=== PATIENT | female | born 1945 | race Caucasian/White ===

== ENCOUNTER 2016-10-13 10:10 | Emergency (ER) | payer MEDICARE ==
[2016-10-13 10:20] VITALS: BP 140/82
--- NOTE | 2016-10-13 11:30 | UC ---
Skin Complaint HPI - HPI Summary HPI Summary: Pt c/o painful "lump" on left side of chin thats been there for over two weeks and does not radiate. She states she had a cold right before she began to notice the lump. The lump is painful and without redness, warmth or drainage. She states the lump came upon gradually and has not gotten better or worse in the last few days. She states Motrin makes the pain better and has been taking it consistently since the onset of the lump. She denies health problems and takes levothyroxine for hypothyroid. She denies previous sxs similar to this. She wears dentures and pain is worse without dentures. She notes that she cleans her dentures thoroughly and denies recent dental infections. Denies fevers, chills, ear pain, sweats, neck pain. Allergic to cillins. - History of Current Complaint Chief Complaint: UCSkin Time Seen by Provider: 10/13/16 11:18 Stated Complaint: LUMP ON CHIN Hx Obtained From: Patient ?: No Onset/Duration: Gradual Onset Skin Exposure Onset/Duration: Days Ago Timing: Constant Onset Severity: Moderate Current Severity: Moderate Pain Intensity: 3 Pain Scale Used: 0-10 Numeric Location: Face Character: Swelling, Raised Aggravating: Touch Alleviating: OTC Meds - motrin Associated Signs & Symptoms: Positive: Negative - Allergy/Home Medications Allergies/Adverse Reactions: Allergies Allergy/AdvReac Type Severity Reaction Status Date / Time Ampicillin Allergy Rash Verified 10/13/16 10:20 Hydrochlorothiazide Allergy Unknown Verified 10/13/16 10:20 [From Benicar HCT] Reaction Details Olmesartan [From Benicar HCT] Allergy Unknown Verified 10/13/16 10:20 Reaction Details Home Medications: Home Medications Acetaminophen [Acetaminophen Extra Stren] 500 mg PO Q4H PRN 10/13/16 [History Confirmed 10/13/16] Review of Systems Constitutional: Negative Skin: Other - swelling over left chin ENT: Other - swelling of left chin Respiratory: Negative Cardiovascular: Negative Motor: Negative Neurological: Negative Psychological: Negative All Other Systems Reviewed And Are Negative: Yes PMH/Surg Hx/FS Hx/Imm Hx Previously Healthy: Yes Endocrine History Of: Reports: Diabetes, Thyroid Disease Cardiovascular History Of: Reports: Hypertension Denies: Pacemaker/ICD GI/ History Of: Reports: Renal Disease - STONES RESOLVED - Surgical History Surgical History: Yes Surgery Procedure, Year, and Place: HYSTERECTOMY 1980, [place],THYROIDECTOMY 2001 - Social History Occupation: Retired Lives: With Family Alcohol Use: None Substance Use Type: None Smoking Status (MU): Never Smoked Tobacco Physical Exam Triage Information Reviewed: Yes Appearance: Well-Appearing, Well-Nourished Vital Signs: Initial Vital Signs Temp 97.5 F 10/13/16 10:13 Pulse 65 10/13/16 10:13 Resp 16 10/13/16 10:13 BP 140/82 10/13/16 10:13 Pulse Ox 98 10/13/16 10:13 Vital Signs Reviewed: Yes Eye Exam: Normal Eyes: Positive: Conjunctiva Clear ENT Exam: Normal ENT: Positive: Pharynx normal, TMs normal, Other: - 2cm diameter lump over left chin with associated pain on palpation Dental: Positive: Other: - slight gingivitis over bottom teeth under dentures and partial dentures Neck exam: Normal Neck: Positive: Supple, Nontender Respiratory: Positive: Chest non-tender, Lungs clear, Normal breath sounds Cardiovascular: Positive: RRR Musculoskeletal Exam: Normal Musculoskeletal: Positive: Strength Intact Neurological Exam: Normal Neurological: Positive: Alert Psychological: Positive: Normal Response To Family Skin Exam: Normal Course/Dx - Course Course Of Treatment: Patient with 2cm in diameter swelling to left lower chin without associated redness, warmth, drainage. Pain on palpation. pain is better with motrin. patient given clindamycin and encouraged to follow up with ENT. Possible sialadenitis of sublingual gland or abscess under skin. Denies trismus, difficulty swallowing or other symptoms. Denies DUMAS. No fever, chills or sweats. VS WNL. Will treat to cover both sialadenitis with infection and abscess. - Differential Diagnoses - Skin Complaint Differential Diagnoses: Angioedema, Local Allergic Reaction, Lymphadenitis, MRSA , Other - sialadenitis - Diagnoses Provider Diagnoses: lump on face Discharge - Discharge Plan Condition: Stable Disposition: HOME Prescriptions: Clindamycin Cap(NF) [Cleocin 300 mg Cap(NF)] 300 mg PO Q6H #40 cap Patient Education Materials: Dental Abscess (ED), Sialoadenitis (ED) Referrals: Hernán Macias MD [Medical Doctor] - Sabrina Montalvo MD [Primary Care Provider] - Additional Instructions: I AM REFERRING YOU TO ENT PHYSICIAN THIS COULD BE A DUCT OBSTRUCTION CAUSING INFLAMMATION THIS COULD ALSO BE AN INFECTION OF THE LOWER JAW/TOOTH I AM GOING TO START YOU ON ANTIBIOTICS, BUT PLEASE FOLLOW UP WITH PCP OR ENT IF SYMPTOMS BECOME WORSE, COME BACK TO UC OR GO THE THE ED RIGHT AWAY. IBUPROFEN 600MG THREE TIMES DAILY FOR PAIN AND INFLAMMATION. Images Head: 1 - small 2cm lump without erythema, warmth or drainage.
== END 2016-10-13 11:45 | disposition home or self-care (01) ==
LOC: UCCORT 10:10
DX: R22.0 Localized swelling, mass and lump, head (principal); E11.9 Type 2 diabetes mellitus without complications; I10 Essential (primary) hypertension; E89.0 Postprocedural hypothyroidism; Z90.49 Acquired absence of other specified parts of digestive tract; Z88.1 Allergy status to other antibiotic agents
CPT/HCPCS: 99212; G0463

== ENCOUNTER 2018-07-10 08:18 | Emergency (ER) | payer MEDICARE ==
--- OUTSIDE RECORDS SUMMARY | 2018-07-10 08:25 | XMS REPORT | Continuity of Care Document ---
:1945 External Reference #:[id number] Author Name Sheryl Travis Care Team Providers Name Role Phone Sabrina Mitchell MD Primary Care Physician Unavailable Payers Type Date Identification Numbers Payment Provider Subscriber Expires: Policy Number: [id number] [facility] Medicare Solutions Hina Gómez 2016 PayID: [id number] [address] [address] [place] [address] Policy Number: [id number] Medicare Blue Ppo Hina Gómez PayID: [id number] [address] [address] [place] [address] Advance Directives Description No Information Available Problems Date Description Provider Status Onset: 12/23/2016 Essential hypertension Donnie Simons, [facility] Active Onset: 07/04/2018 Anxiety state Kali Aviles M.D. Active Onset: 07/04/2018 Recurrent major depressive episodes Kali Aviles M.D. Active Onset: 07/04/2018 Chronic fatigue syndrome Kali Aviles M.D. Active Onset: 07/04/2018 Amnesia Kali Aviles M.D. Active Family History Date Family Member(s) Problem(s) Comments Father Heart Disease : (12/12/2016) Father due to CAD Mother Alzheimer's Disease Social History Type Date Description Comments Sex Unknown Marital Status Lives With Occupation Retired nursing Hand Dominance Right-handed Tobacco Use Start: Unknown Never Smoked Cigarettes Tobacco Use Start: Unknown Never Smoked Cigars Tobacco Use Start: Unknown Never Smoked A Pipe Smoking Status Reviewed: 07/04/18 Never Smoked A Pipe Smokeless Tobacco Never Used Smokeless Tobacco ETOH Use Denies alcohol use Tobacco Use Start: Unknown Patient has never smoked Recreational Drug Use Denies Drug Use Exercise Type/Frequency Exercises regularly Water aerobics at the [facility] Allergies, Adverse Reactions, Alerts Date Description Reaction Status Severity Comments 10/18/2016 Ampicillin Active 10/18/2016 Hydrochlorothiazide Active 10/18/2016 Olmesartan Active 07/04/2018 Benicar HCT Itching Active Medications Medication Date Status Form Strength Qnty SIG Indications Ordering Provider Tylenol / Active Capsules 325mg 2 capsules Unknown 0000 three times a day Metformin HCL / Active Tablets ER 500mg 2 po twice [place], ER 0000 24HR a day Sabrina Batista MD Famotidine / Active Tablets 20mg 1 po twice [place], 0000 a day Sabrina Batista MD Escitalopram / Active Tablets 20mg po qday Macadam, Oxalate 0000 Sabrina Batista MD Losartan / Active Tablets 50-12.5mg take 1 Unknown Potassium/[place] 0000 tablet chlorothiazide once daily Simvastatin / Active Tablets 40mg 1 po qday Macadam, 0000 Sabrina Batista MD Metoprolol / Active Tablets 100mg 1 po twice [place], Tartrate 0000 a day Sabrina Batista MD Nifedipine ER / Active Tablets ER 30mg 1 po qday [place]adam, 0000 24HR Sabrina Batista MD Oxybutynin / Active Tablets 5mg 180ta by mouth Macadam, Chloride 0000 bs every day Sabrina Batista MD Mirtazapine / Active Tablets 15mg 1 po qday [place], 0000 Sabrina Batista MD Aspirin Adult / Active Tablets DR 81mg 1 by mouth Unknown Low Dose 0000 every day Levothyroxine / Active Tablets 125mcg 1 by mouth Unknown Sodium 0000 every other day One Daily For / Active Tablets 1 daily Unknown Women 0000 Levothyroxine / Active Tablets 112mcg 90tab 1 by mouth Unknown Sodium 0000 s Every Other Day Meclizine HCL / Active Tablets 25mg 30tab 1-2 tabs Unknown 0000 s three times a day as needed Duloxetine HCL / Active Caps DR 60mg 1 by mouth Unknown 0000 Part every day Colace 2-In-1 / Active Tablets 8.6-50mg 1 tab by Unknown 0000 mouth twice daily Clindamycin HCL / Hx Capsules 150mg as Unknown 0000 - directed 12/19/ for 10 2016 days. Levothyroxine 00/00/ Hx Tablets 125mcg 1 po qday [place], Sodium 0000 - Catherine 12/12/ M., N.P. 2016 Topiramate 0000/ Hx Tablets 100mg 1 po qday Paula 0000 - Sabrina 12/19/ MMD Gio 2016 Naproxen 0000/ Hx Tablets 375mg 1 by mouth Unknown 0000 - two times 12/19/ a day as 2017 needed Loratadine / Hx Capsules 10mg once a day Unknown 0000 - for 2016 Proair HFA 00/00/ Hx Aerosol 108(90Base 2 puffs by Unknown 0000 - ) mcg/Act mouth every 2016 times a day as needed Vitamin D 0000/ Hx Tablets 1000Unit by mouth Unknown 0000 - everyday 2016 Calcium 600+D3 / Hx Tablets 600-800mg- 1 daily Unknown Plus Minerals 0000 - Unit 2017 Stool Softener / Hx Capsules 100mg 1 by mouth Unknown 0000 - twice 06/11/ daily 2018 Proair HFA 00/00/ Hx Aerosol 108(90Base 2 puffs by Unknown 0000 - ) mcg/Act mouth 07/02/ every 4 2017 hours as needed Vitamin D 0000/ Hx Tablets 1000Unit by mouth Unknown 0000 - everyday 2017 Medications Administered in Office Medication Date Status Form Strength Qnty SIG Indications Ordering Provider Technetium TC Administered Injection Donnie S. 99M 017 DO Ronak Tetrofosmin, FACC Per Unit Dose Up To 40 Millicuries Immunizations Description No Information Available Vital Signs Date Vital Result Comment 07/04/2018 8:36am Height 66.25 inches 5'6.25" Weight 197.00 lb BP Systolic Sitting 118 mmHg BP Diastolic Sitting 68 mmHg Respiratory Rate 16 /min Pain Level 0 BMI (Body Mass Index) 31.6 kg/m2 01/13/2017 2:37pm Weight 221.00 lb with shoes Heart Rate 62 /min BP Systolic Sitting 114 mmHg Lue lg cuff BP Diastolic Sitting 80 mmHg Lue lg cuff BP Systolic Standing 112 mmHg Lue lg cuff BP Diastolic Standing 80 mmHg Lue lg cuff Respiratory Rate 16 /min Ejection Fraction 60-65% date 12/20/16 ECHO 12/23/2016 10:03am Height 66.25 inches 5'6.25" Weight 216.00 lb no shoes Heart Rate 76 /min BP Systolic 138 mmHg Rue lrg cuff BP Diastolic 82 mmHg Rue lrg cuff BP Systolic Sitting 140 mmHg Lue lrg cuff BP Diastolic Sitting 86 mmHg Lue lrg cuff BP Systolic Standing 128 mmHg Lue lrg cuff BP Diastolic Standing 80 mmHg Lue lrg cuff Respiratory Rate 17 /min BMI (Body Mass Index) 34.6 kg/m2 Ejection Fraction 60-65% 12/20/2016-echo 10/18/2016 2:41pm Height 67 inches 5'7" Weight 220.00 lb Heart Rate 77 /min BP Systolic Sitting 118 mmHg BP Diastolic Sitting 68 mmHg Respiratory Rate 16 /min Pain Level 2 BMI (Body Mass Index) 34.5 kg/m2 Results Description No Information Available Procedures Date Code Description Status 01/03/2017 24413 Stress Test Completed 01/03/2017 91399 Myocardial Perfusion Imaging Tomographic (Spect) Multiple Completed Studies 12/23/2016 08676 EKG Tracing & Interpretation Completed 12/20/2016 99827 ECHO Transthoracic, Real-Time 2D With Doppler And Color Completed Flow Encounters Type Date Location Provider Dx Diagnosis Office Visit 01/13/2017 [facility] Donnie SGio R94.31 Abnormal 2:40p Of Jamel Simons DO electrocardiogram [ECG] FACC [EKG] Office Visit 12/23/2016 [facility] Donnie SGio R94.31 Abnormal 10:40a Of Jamel Simons DO electrocardiogram [ECG] FACC [EKG] R73.01 Impaired fasting glucose E78.5 Hyperlipidemia, unspecified I10 Essential (primary) hypertension G47.33 Obstructive sleep apnea (adult) (pediatric) Office Visit 10/18/2016 [facility] K04.7 Periapical abscess 2:45p [facility] without sinus [facility] Office Visit 12/27/2012 Singh Samano, 427.0 PSVT Paroxysmal 2:00p Cardiology Elvi Alba, FACTha, Supraventricular [facility] FSCAI Tachycardia Plan of Treatment Future Appointment(s):11/28/2018 9:45 am - Kali Aviles M.D. at [facility]/ [facility]07/04/2018 - Kali Aviles M.D.R41.3 Other amnesiaFollow up:Follow up in 4 monthsRecommendations:Make appointment with PCP to discuss depression and anxiety. I would like for those to be better [id number] Chronic fatigue, [id number] Major depressive disorder, recurrent, [id number] Anxiety disorder, unspecified
[2018-07-10 08:36] VITALS: BP 136/61
--- NOTE | 2018-07-10 09:15 | UC ---
Headache HPI - HPI Summary HPI Summary: headache for months worse over the past one week and sever last night no her pain is 5 out of 10 , its pressure like and constant, no radiation of pain nothing make it better or worse no nausea or vomiting , + photophobia and problems with memory was seen by Dr. Aviles ( neurologist) no work up was done - History Of Current Complaint Chief Complaint: UCHeadache Stated Complaint: HEADACHE Time Seen by Provider: 07/10/18 08:35 Hx Obtained From: Patient Onset/Duration: Gradual Onset, Lasting Weeks - 1, Still Present Onset Of Symptoms: Still Present Initially Headache Was: Severe Currently Pain Is: Moderate Pain Intensity: 6 Timing: Constant, Weeks Character: Dull, Pressure Location of Headache: Diffuse Aggravating Factor(s): Nothing Allevating Factor(s): Nothing Associated Signs And Symptoms: Positive: Visual Changes. Negative: Seizure, Nausea, Vomiting, Sinus Pressure, Fever, Neck Pain, Neck Stiffness, Decreased LOC - Allergies/Home Medications Allergies/Adverse Reactions: Allergies Allergy/AdvReac Type Severity Reaction Status Date / Time ampicillin Allergy Rash Verified 07/10/18 08:39 hydrochlorothiazide Allergy Unknown Verified 07/10/18 08:39 [From Benicar HCT] Reaction Details olmesartan [From Benicar HCT] Allergy Unknown Verified 07/10/18 08:39 Reaction Details Home Medications: Home Medications Acetaminophen [Acetaminophen Extra Strength] 100 mg PO BID PRN 07/10/18 [ History Confirmed 07/10/18] Aspirin [Ecotrin Low Strength] 81 mg PO DAILY 07/10/18 [History Confirmed ] Calcium 600mg 1 tab PO DAILY 07/10/18 [History Confirmed 07/10/18] Docusate Sodium [Colace] 100 mg PO BID 07/10/18 [History Confirmed 07/10/18] Losartan/Hydrochlorothiazide [Losartan Potassium/Hydroc 50-12.5 mg] 1 tab PO QAM 07/10/18 [History Confirmed 07/10/18] PMH/Surg Hx/FS Hx/Imm Hx - Additional Past Medical History Additional PMH: Graves disease. Lightheadedness for about 9 months; pt fell due to balance problem 05/2018. Hx Vertigo [ End ] Endocrine History: Thyroid Disease, Hypothyroidism Cardiovascular History: Hypertension - Surgical History Surgical History: Yes Surgery Procedure, Year, and Place: HYSTERECTOMY. THYROIDECTOMY. GALLBLADDER - Family History Known Family History: Positive: Hypertension - Social History Alcohol Use: None Substance Use Type: None Smoking Status (MU): Never Smoked Tobacco Review of Systems All Other Systems Reviewed And Are Negative: Yes Constitutional: Positive: Fatigue Skin: Positive: Negative Eyes: Positive: Negative ENT: Positive: Negative Respiratory: Positive: Negative Cardiovascular: Positive: Negative Gastrointestinal: Positive: Negative Motor: Positive: Weakness Neurovascular: Positive: Negative Musculoskeletal: Positive: Negative Neurological: Positive: Weakness Is Patient Immunocompromised?: No Physical Exam Triage Information Reviewed: Yes Appearance: Well-Appearing, No Pain Distress, Well-Nourished Vital Signs: Initial Vital Signs Temp 97.3 F 07/10/18 08:25 Pulse 89 07/10/18 08:25 Resp 16 07/10/18 08:25 BP 136/61 07/10/18 08:25 Pulse Ox 99 07/10/18 08:25 Vital Signs Reviewed: Yes Eyes: Positive: Conjunctiva Clear ENT: Positive: Normal ENT inspection, Hearing grossly normal, Pharynx normal Neck: Positive: Supple, Nontender, No Lymphadenopathy Respiratory: Positive: Chest non-tender, Lungs clear, Normal breath sounds Cardiovascular: Positive: RRR, No Murmur, Pulses Normal Musculoskeletal Exam: Normal Musculoskeletal: Positive: Strength Intact, ROM Intact Neurological: Positive: Alert, Muscle Tone Normal Psychological: Positive: Age Appropriate Behavior Skin Exam: Normal UC Physical Exam Vital Signs On Initial Exam: Initial Vitals Temp Pulse Resp BP Pulse Ox 97.3 F 89 16 136/61 99 07/10/18 08:25 07/10/18 08:25 07/10/18 08:25 07/10/18 08:25 07/10/18 08:25 - Neurological Exam Neurological: Normal, Sensory/Motor Intact, Alert, Oriented to Person Place, Time, CN Intact II-III, Reflexes Intact, Normal Gait Headache Course/Dx - Differential Dx/Diagnosis Provider Diagnosis: Headache, Memory deficit Discharge - Sign-Out/Discharge Documenting (check all that apply): Patient Departure All imaging exams completed and their final reports reviewed: No Studies - Discharge Plan Condition: Stable Disposition: HOME Prescriptions: SUMAtriptan TAB* [Imitrex TAB*] 100 mg PO SEE INSTRUCTIONS #10 tab Patient Education Materials: Acute Headache (DC), Mild Cognitive Impairment: New Diagnosis (DC) Referrals: Sarbina Montalvo MD [Primary Care Provider] - 7 Days Additional Instructions: will have you try migraine medication as needed for headache please call your neurologist for a follow up , may need a work up including brain MRI - Billing Disposition and Condition Condition: STABLE Disposition: Home
== END 2018-07-10 09:15 | disposition home or self-care (01) ==
LOC: UCCORT 08:18
DX: R51 Headache (principal); R41.3 Other amnesia; Z88.0 Allergy status to penicillin; I10 Essential (primary) hypertension
CPT/HCPCS: 99212; G0463

== ENCOUNTER 2019-02-23 07:46 | Emergency (ER) | payer MEDICARE ==
[2019-02-23 08:11] VITALS: BP 141/72
--- NOTE | 2019-02-23 08:22 | UC ---
General HPI - HPI Summary HPI Summary: pt is c/o swelling to her lower legs for the past 2 days. she admits to a prior hx of mild swelling to her lower legs but this is worse. she offers that she has been consuming a lot of salt as of late in her food plus with nuts and potato chips. she denies any hx of chf, NH, kidney and liver disease. she denies any new medications of dose adjustments to her medications. she denies cp, sob, fever, chills, dysuria and any other swelling including her abdomen and arms. - History of Current Complaint Chief Complaint: UCLowerExtremity Stated Complaint: BILATERAL ANKLE SWELLING Time Seen by Provider: 02/23/19 08:13 Hx Obtained From: Patient Onset/Duration: Gradual Onset Timing: Constant Pain Intensity: 0 Associated Signs & Symptoms: Negative: Abdominal Pain, Cough, Chest Pain, Fever , Palpitations, SOB, Wheezing, Weakness - Allergy/Home Medications Allergies/Adverse Reactions: Allergies Allergy/AdvReac Type Severity Reaction Status Date / Time ampicillin Allergy Rash Verified 02/23/19 08:01 olmesartan [From Benicar [facility]] Allergy Unknown Verified 02/23/19 08:01 Reaction Details Home Medications: Home Medications ARIPiprazole TAB* [Abilify TAB*] 5 mg PO BEDTIME 02/23/19 [History Confirmed ] Calcium Carbonate/Vitamin D3 [Calcium 600 + Vit D Tablet] 1 each PO DAILY [History Confirmed 02/23/19] Famotidine TAB* [Pepcid 20 MG TAB*] 20 mg PO BID 02/23/19 [History Confirmed ] Levothyroxine TAB* [Synthroid TAB*] 75 mcg PO DAILY 02/23/19 [History Confirmed 02/23/19] Losartan/Hydrochlorothiazide [Losartan Potassium/Hydroc 100-12.5 mg] 1 tab PO DAILY 02/23/19 [History Confirmed 02/23/19] Mirtazapine TAB* [Remeron TAB*] 30 mg PO BEDTIME 02/23/19 [History Confirmed ] NIFEdipine ER TAB* [Procardia Xl TAB*] 30 mg PO DAILY 02/23/19 [History Confirmed 02/23/19] buPROPion TAB* [Wellbutrin TAB*] 75 mg PO QAM 02/23/19 [History Confirmed ] metFORMIN* [Glucophage 500 MG TAB *] 1,000 mg PO BID 02/23/19 [History Confirmed 02/23/19] PMH/Surg Hx/FS Hx/Imm Hx - Additional Past Medical History Additional PMH: over active bladder. Endocrine History: Diabetes, Thyroid Disease, Dyslipidemia Cardiovascular History: Hypertension Psychological History: Depression - Surgical History Surgical History: Yes Surgery Procedure, Year, and Place: HYSTERECTOMY. THYROIDECTOMY. GALLBLADDER - Family History Known Family History: Positive: Hypertension - Social History Lives: With Family Alcohol Use: None Substance Use Type: None Smoking Status (MU): Never Smoked Tobacco Review of Systems All Other Systems Reviewed And Are Negative: Yes Constitutional: Negative: Fever, Chills Respiratory: Negative: Shortness Of Breath, Cough Cardiovascular: Negative: Palpitations, Chest Pain Gastrointestinal: Negative: Abdominal Pain Genitourinary: Negative: Dysuria Motor: Negative: Decreased ROM Musculoskeletal: Positive: Edema. Negative: Decreased ROM, Myalgia Neurological: Negative: Weakness, Paresthesia, Numbness Physical Exam Triage Information Reviewed: Yes Appearance: Well-Appearing Vital Signs: Initial Vital Signs Temp 97.9 F 02/23/19 08:00 Pulse 76 02/23/19 08:00 Resp 18 02/23/19 08:00 BP 141/72 02/23/19 08:00 Pulse Ox 99 02/23/19 08:00 Vital Signs Reviewed: Yes Eyes: Positive: Conjunctiva Clear ENT: Positive: Pharynx normal. Negative: Nasal congestion Neck: Positive: Supple, Nontender, No Lymphadenopathy, Other: - No JVD Respiratory: Positive: Lungs clear, Normal breath sounds, No respiratory distress. Negative: Crackles, Rhonchi, Wheezing Cardiovascular: Positive: RRR, No Murmur, Pulses Normal Abdomen Description: Positive: Nontender, No Organomegaly, Soft. Negative: Distended Bowel Sounds: Positive: Present Musculoskeletal: Positive: ROM Intact, Edema @ - Mild pitting from mid shins to feet. No calf cords or tenderness. Neurological: Positive: Alert Psychological: Positive: Age Appropriate Behavior Skin Exam: Normal Course/Dx - Differential Dx - Multi-Symptom Differential Diagnoses: Other - non toxic. not hypoxic. no concern for cardiopulmonary pathology as cause of edema. no hx renal or liver disease. + hx mild edema with acute worsening following dietary indiscretion. will also tx for uti based on u/a. u/a not + for large amounts of blood or protein to suggest nephritis or nephrotic syndrom. - Diagnoses Provider Diagnosis: Leg edema, UTI (urinary tract infection) Discharge - Sign-Out/Discharge Documenting (check all that apply): Patient Departure All imaging exams completed and their final reports reviewed: No Studies - Discharge Plan Condition: Stable Disposition: HOME Prescriptions: Cephalexin CAP* [Keflex CAP*] 500 mg PO BID 7 Days #14 cap Patient Education Materials: Urinary Tract Infection in Women (DC), Leg Edema ( ED) Referrals: Sabrina Montalvo MD [Primary Care Provider] - 2 Days Additional Instructions: NO ADDED SALT TO YOUR DIET. AVOID SALTY FOODS. ELEVATE YOUR LEGS WHEN POSSIBLE. CONSIDER COMPRESSION STOCKINGS. FOLLOW UP WITH YOUR DOCTOR THIS COMING MONDAY. GO TO THE ER IMMEDIATELY FOR ANY WORSENING. - Billing Disposition and Condition Condition: STABLE Disposition: Home - Attestation Statements Provider Attestation: I was available for consult. This patient was seen by the KERI. The patient was not presented to, seen by, or examined by me. -Oleg
== END 2019-02-23 08:55 | disposition home or self-care (01) ==
LOC: UCCORT 07:46
DX: R60.9 Edema, unspecified (principal); N39.0 Urinary tract infection, site not specified; E11.9 Type 2 diabetes mellitus without complications; Z79.84 Long term (current) use of oral hypoglycemic drugs; E07.9 Disorder of thyroid, unspecified; I10 Essential (primary) hypertension; F32.9 Major depressive disorder, single episode, unspecified
CPT/HCPCS: 81003; 87077; 87086; 87186; 99212; G0463